=== PATIENT | female | born 1935 | race African-American/Black ===

== ENCOUNTER → 2017-03-18 | Outpatient (CLI) | payer OTHER ==
--- NOTE | 2017-03-18 16:40 | KCIC ---
PROCEDURE MRI of the cervical spine without contrast 03/18/2017 HISTORY Neck pain which radiates down the right arm. TECHNIQUE Unenhanced T1 weighted, T2 weighted and inversion recovery sagittal and gradient echo and T2 weighted axial images of the cervical spine were obtained. FINDINGS Comparison is made to radiographs of the cervical spine dated 06/28/2005. There is slight reversal of normal cervical lordosis. Very mild anterolisthesis C4 in relation to C5 is noted. Degenerative signal changes are seen involving all of the discs of the cervical spine. The marrow signal of the visualized bony structures is within normal limits. At the C2-3 disc space there is minimal generalized disc bulge. Degenerative changes are seen involving the uncovertebral and facet joints bilaterally. These findings do not result in significant central spinal canal or neural foraminal stenosis. At the C3-4 disc space there is mild generalized disc bulge. Degenerative changes are seen involving the uncovertebral and facet joints, left greater than right. These findings do not result in significant central spinal canal or neural foraminal stenosis. At the C4-5 disc space there is mild generalized disc bulge. Degenerative changes are seen involving the facet joints and uncovertebral joints, left greater than right. Superimposed on the disc bulge is a focal central disc protrusion. This measures 3 millimeters in AP diameter. These findings efface the anterior CSF without resulting in significant central spinal canal or neural foraminal stenosis. At the C5-6 disc space there is mild to moderate generalized disc bulge. This is eccentric to the left. Degenerative changes are seen involving the uncovertebral and facet joints, right greater than left. These findings do not result in significant central spinal canal stenosis. Mild right neural foraminal stenosis is seen. The left neural foramina is patent. At the C6-7 disc space there is mild to moderate generalized disc bulge. This is eccentric to the left. Degenerative changes are seen involving the uncovertebral and facet joints, left greater than right. Superimposed on the disc bulge is a left paracentral disc osteophyte complex. This measures 3 millimeters in AP diameter. These findings when combined efface the anterior CSF resulting in mild left-sided central spinal canal stenosis without evidence of cord impingement. Mild left neural foraminal stenosis is seen. The right neural foramina is patent. At the C7-T1 disc space there is minimal generalized disc bulge. Degenerative changes are seen involving the facet joints, left greater than right. These findings do not result in significant central spinal canal or neural foraminal stenosis. IMPRESSION Degenerative changes are seen throughout the cervical spine. These findings result in mild left-sided central spinal canal stenosis at C6-7 without evidence of cord impingement. Mild right neural foraminal stenosis is seen at C5-6. Mild left neural foraminal stenosis is seen at C6-7. Electronically signed by: Nate Ulloa MD (March 18, 2017 16:38:42)
== END | disposition home or self-care (01) ==
LOC: KCIC MRI 12:26
PROVIDERS: ATTEND Orthopaedic Surgery
DX: M47.892 Other spondylosis, cervical region (principal); M48.06 Spinal stenosis, lumbar region
CPT/HCPCS: 72141

== ENCOUNTER → 2017-07-18 | Outpatient (CLI) | payer OTHER ==
--- NOTE | 2017-07-25 12:33 | EEG ---
DATE OF SERVICE: 07/18/2017 EEG NUMBER: [id number] and OBJECTIVE: This is an 82-year-old -[place] female patient with history of memory loss and confusional episodes. EEG was requested to evaluate her cerebral activity. METHODS: Twenty electrodes were applied according to the international 10-20 electrode placement system. EKG monitoring, hyperventilation, intermittent photic stimulation and monopolar and bipolar montages are routinely utilized. The record is obtained on a digital system with video monitoring. FINDINGS: 1. Background: The patient was recorded in the awake, drowsy and sleep states. The overall background amplitude is 5-10 microvolts. A posterior dominant rhythm of 8-9 Hz is observed. The faster activity in beta frequency also noted. 2. Abnormalities: No specific epileptiform discharge or electrographic seizure is seen. No focal or diffuse slowing. 3. Activation: Hyperventilation was performed with good efforts and normal response. Intermittent photic stimulation was performed with photic driving. IMPRESSION: This EEG is a borderline study for the awake, drowsy and sleep states. There is a fast activity in beta frequency sometimes. No focal, lateralizing, specific epileptiform discharge or electrographic seizure is seen. NANCY CHANCE MD DR: SCOTT/kendall JOB#: [id number] / [id number] ELENA
== END | disposition home or self-care (01) ==
LOC: RT 10:05
PROVIDERS: ATTEND Psychiatry & Neurology Neurology
DX: F03.90 Unspecified dementia, unspecified severity, without behavioral disturbance, psychotic disturbance, mood disturbance, and anxiety (principal)
CPT/HCPCS: 95816

== ENCOUNTER → 2018-05-22 | Outpatient (CLI) | payer OTHER | END | disposition home or self-care (01) | LOC: MRI 09:47 | DX: M25.78 Osteophyte, vertebrae (principal); M48.02 Spinal stenosis, cervical region; M12.88 Other specific arthropathies, not elsewhere classified, other specified site; M50.223 Other cervical disc displacement at C6-C7 level | CPT/HCPCS: 72141 ==

== ENCOUNTER → 2019-10-02 | Outpatient (CLI) | payer OTHER ==
[~2019-10-02] MED LIST: AMLO5TAB10 PO; DONE10TA61 PO; DULO30CA2 PO; DULO60CA6 PO; GABA600T7 PO; PANT20TA2 PO; SIMV40TA18 PO; TRAM50TA PO
--- NOTE | 2019-10-03 00:05 | PAIN ---
DATE OF SERVICE: 10/02/2019 INITIAL CONSULTATION FOR PAIN CLINIC CHIEF COMPLAINT: Neck and bilateral upper extremity pain, left greater than right. HISTORY OF PRESENT ILLNESS: This is an 84-year-old female who presents with history of pain in the neck and also in the low back, has been through multiple modalities with her low back at an outside pain center including epidural steroid injections, radiofrequency ablation, medial branch blocks as well as multiple physical therapies. Her main complaint today is her neck and shoulders, more on the left than the right, the left upper extremity with radiating pain into the left posterior deltoid, lateral anterior bicep, into the triceps, also into the anterior forearm bilaterally, but worse on the left side. The patient reports it awakens her from sleep at least 2-3 times at night, affects her ability to walk. She is using a walker and a cane. She has a walker with her today. The patient has had physical therapy, has had counseling, chiropractic treatment which is going on currently, physical therapy going on currently as well, doing exercises as well at least twice a week. She does belong to the local [employer] and uses the pool there as well. The patient has been taking pxog-oip-stmsxvj Advil as well as Tylenol, which does help, but only about 20%. The patient reports her back is still painful as well, but her chief complaint is the neck and left upper extremity pain. No specific injury or action that she is aware of. She has got worse over time. It has been like this for several years now. The patient has some difficulty reporting her history. The patient does have a history of dementia and her son is with her today who helps fill in the historical history as well. The patient describes the pain as constant, sharp, shooting with numbness and tingling, radiating and cramping occasionally. The patient rates her disability rating from 0-10, 10 being the worst and an 8 with family home responsibilities and social activity, 7 with recreation, 6 with self-care and 9 with life support activities. The patient did have MRI scan of cervical spine showing C4-C5 with mild left neural foraminal stenosis due to uncovertebral and facet arthrosis, C5-C6 shows small broad-based posterior disk osteophyte complex with moderate right and [id number]-kv-[id number] left neural foraminal stenosis. C6-C7 shows srua-ew-[id number] bilateral neural foraminal stenosis, left greater than right due to uncovertebral facet arthrosis as well. The patient reports no loss of motor function, but significant fatigability with the left upper extremity, especially with reaching over her head with her left hand, with any repetitive motions or lifting items with the left arm. PAST MEDICAL HISTORY: Significant for hypertension, diabetes, dementia. PREVIOUS SURGERY: Include right shoulder surgery in 2006 and right carpal tunnel release. CURRENT MEDICATIONS: Include gabapentin, simvastatin, tramadol, amlodipine, sucralfate, pantoprazole, duloxetine and Aricept. ALLERGIES: THE PATIENT IS ALLERGIC TO SHELLFISH. NO MEDICAL ALLERGIES THAT SHE IS AWARE OF. FAMILY HISTORY: Significant for cancers, hypertension. SOCIAL HISTORY: The patient does not drink alcohol, does not smoke. Denies any illegal, illicit or recreational drugs. She is , lives locally by herself in [place], [place]. REVIEW OF SYSTEMS: The patient's review of systems is positive for those items mentioned in history of present illness. All systems reviewed and otherwise negative. It is complete, full and well documented on the patient's chart. PHYSICAL EXAMINATION: VITAL SIGNS: The patient's blood pressure is 134/80, pulse 75, respirations 18, temperature is 98.3 degrees Fahrenheit, height is 4 feet 10 inches, weight is 140 pounds. GENERAL: The patient is awake, alert, oriented, appropriate, very pleasant demeanor. Again, the patient's son present helps with history. HEENT: Shows normocephalic, atraumatic. Extraocular movements are intact and symmetrical. Oral cavity: Mucous membranes moist and pink. NECK: Shows anterior throat supple without palpable lymphadenopathy noted. Swallow reflex symmetrical. CHEST: Shows normal on inspection. Breath sounds are clear bilaterally. HEART: Shows S1, S2 clear. No murmurs auscultated. ABDOMEN: Obese, soft, nontender, nondistended. No palpable organomegaly is noted. BACK: Shows spine grossly in the midline. Cervical lordotic curvature shows normal appearance as is thoracic kyphotic curvature and slight flattening of lumbar lordotic curvature. Cervical paraspinous muscle shows symmetrical on inspection, on palpation shows no asymmetry, but shows some moderate tenderness with palpation bilaterally, more on the left and the superior medial trapezius as well as inferior cervical paraspinous musculature. The patient has good rotational motion, however, both laterally with some moderate tenderness with rotation past 45 degrees on the left, but not on the right. Full extension, full forward flexion performed with some minor pain with extension, but not with forward flexion. EXTREMITIES: The patient's upper extremities show deep tendon reflexes at 1+ in the biceps and triceps tendons. Motor exam is strong with continuous improvement coordinator strength rated at approximately 5/5 on the right and 4/5 on the left. Peripheral pulses are 2+ radial distribution. Bicep and tricep flexion is likewise 4/5 on the left, 5/5 on the right as well. Shoulder shrug is strong and intact without loss of strength on resistance with some moderate tenderness in the base of the neck on the left side with resistance. This is true with abduction of the shoulder at 90 degrees with pain, but without loss of strength bilaterally. SKIN: Shows warm and dry, good turgor. No edema. No sores, rashes or bruising throughout. IMPRESSION: 1. This is an 84-year-old female with clinical radiculopathy at C6-C7 dermatomal distribution on the left with radiating pain into the left shoulder and left arm, status post physical therapy, chiropractic treatment, which is ongoing as well and pool therapy, which she has been performing on her own at [facility]. 2. MRI scan of cervical spine as noted. 3. Diabetes. 4. Hypertension. 5. Arthritis. 6. Dementia. PLAN: Options were discussed with she and her son including conservative medical managements, physical therapies and interventional techniques. They would like to pursue interventional techniques. We discussed cervical epidural steroid injection using description as well as anatomical models to describe the procedure. They should wait for preauthorization with her insurance provider, [employer] and once this is obtained, we will have her return for cervical epidural steroid injection at that time for clinical left-sided C6-C7 dermatomal radiculopathy for a translaminar approach C6-C7 level with a cervical epidural steroid injection. The patient will continue with stretching and strengthening exercises as well as physical therapy as outlined and chiropractic treatment as outlined and return as scheduled. ADEEL MARES MD DR: MAYE/kendall JOB#: [id number] / [id number]
== END ==
LOC: PNCL 10:31
PROVIDERS: ATTEND Anesthesiology
DX: M54.12 Radiculopathy, cervical region (principal); E11.9 Type 2 diabetes mellitus without complications; I10 Essential (primary) hypertension; M19.90 Unspecified osteoarthritis, unspecified site; F03.90 Unspecified dementia, unspecified severity, without behavioral disturbance, psychotic disturbance, mood disturbance, and anxiety; Z79.899 Other long term (current) drug therapy; Z79.891 Long term (current) use of opiate analgesic; Z79.02 Long term (current) use of antithrombotics/antiplatelets; Z91.013 Allergy to seafood
CPT/HCPCS: G0463

== ENCOUNTER → 2019-10-16 | Outpatient (CLI) | payer OTHER ==
[~2019-10-16] MED LIST changes: +IOHEXOL 180 MG/ML 10 ML VIAL. ONE; +methylPREDNISolone ACETATE 40 MG/ML VIAL. ONE; +methylPREDNISolone ACETATE 80 MG/ML VIAL. ONE
--- NOTE | 2019-10-16 11:40 | PAIN ---
DATE OF SERVICE: 10/16/2019 PROGRESS NOTE FOR PAIN CLINIC DIAGNOSES: Cervical radiculopathy with cervical degenerative disk disease and cervical spinal stenosis. HISTORY OF PRESENT ILLNESS: The patient is an 84-year-old female, who returns for followup status post initial evaluation for a cervical epidural steroid injection and preauthorization. The patient has obtained that now and would like to proceed. The patient reports no new motor or sensory deficits, still significant pain in the base of the neck and shoulders, slightly more on the right than the left at this time, but present bilaterally into the upper extremities. The patient reports it is tingling, sharp, tight, shooting as well as becoming more constant, worse with activity, raising her hands over her head and using her walker to ambulate. The patient reports that 10 on a scale of 10 at all times, average, worst and least and is a 10 today. The patient reports no new motor or sensory deficits. Reports it awakens her from sleep occasionally, but only once or twice a night on most nights. PHYSICAL EXAMINATION: VITAL SIGNS: The patient's blood pressure is 134/75, pulse 72, respirations 18, temperature 98.2 degrees Fahrenheit, and height is 4 feet 10 inches. GENERAL: The patient is awake, alert, oriented, appropriate, is very pleasant demeanor. HEENT: Shows normocephalic, atraumatic. Extraocular movements are intact and symmetrical. Oral cavity: Mucous membranes are moist and pink. Dentition is intact. NECK: Shows anterior throat supple without palpable lymphadenopathy noted. Swallow reflex symmetrical. CHEST: Shows normal on inspection. Breath sounds are clear bilaterally. HEART: Shows S1, S2 clear. No murmurs auscultated. ABDOMEN: Soft, nontender, nondistended. BACK: Shows spine grossly in the midline. Normal appearing thoracic kyphosis and lumbar lordotic curvature. Lumbar paraspinous muscle shows symmetrical on inspection. Cervical paraspinous muscles are tender with palpation; however, mostly in the inferior aspect of the cervical paraspinous muscles and into the superior medial trapezius bilaterally, slightly worse on the right than the left. EXTREMITIES: Upper extremities show deep tendon reflexes at 1+ in the biceps, triceps tendons. Motor exam is approximately 4 on a scale of 5 on the left and 5/5 on the right. Peripheral pulses are 2+ radial distribution. No peripheral edema is noted bilaterally. Options were discussed with the patient. The patient's old chart was reviewed as her current medication regimen updated. Current review of systems updated today as well. We will proceed with a cervical epidural steroid injection today with fluoroscopic guidance. The risks were again discussed including but not limited to bleeding, infection, possibility of epidural hematoma, subsequent neurological compromise, dural puncture, headaches, spinal cord and/or nerve damage, side effects of steroid medication and poor results regarding pain control. The patient understands and wished to proceed. The patient will return to clinic in approximately 2 weeks for followup. She was counseled on return appointment, activity level and side effects to be aware of. DIAGNOSES: Cervical radiculopathy with cervical degenerative disk disease and cervical spinal stenosis. PROCEDURE: Cervical epidural steroid injection, translaminar approach at C6-C7 level using C-arm fluoroscopic guidance under sterile prep and drape using local anesthetic. MEDICATION INJECTED: A total of 120 mg of Depo-Medrol plus 5 mL of preservative-free normal saline and 2 mL of contrast. CONDITION AT DISCHARGE: Stable. The patient tolerated procedure well, had no complications. ADEEL MARES MD DR: MAYE/kendall JOB#: [id number] / [id number]
== END ==
LOC: PNCL 10:03
PROVIDERS: ATTEND Anesthesiology
DX: M50.123 Cervical disc disorder at C6-C7 level with radiculopathy (principal); M48.02 Spinal stenosis, cervical region
CPT/HCPCS: 62321; J1030; J1040; Q9965

== ENCOUNTER → 2019-11-13 | Outpatient (CLI) | payer OTHER ==
[~2019-11-13] MED LIST changes: -IOHEXOL 180 MG/ML 10 ML VIAL. ONE; -methylPREDNISolone ACETATE 40 MG/ML VIAL. ONE; -methylPREDNISolone ACETATE 80 MG/ML VIAL. ONE
--- NOTE | 2019-11-13 17:51 | PAIN ---
DATE OF SERVICE: 11/13/2019 PROGRESS NOTE FOR PAIN CLINIC DIAGNOSES: 1. Cervical radiculopathy. 2. Cervical degenerative disk disease. 3. Cervical spinal stenosis. HISTORY OF PRESENT ILLNESS: The patient is an 84-year-old female who returns for followup status post cervical epidural steroid injection x 1. The patient reports about 50% improvement for the first 2 weeks after the injection. The patient reports the pain has returned now over the past few days, but is in the base of the neck and shoulders, more on the left upper extremity than the right, but present bilaterally, more radiating to the base of the neck and into the left shoulder, left arm, left forearm with some numbness and tingling in both hands, but no noticeable tingling on the right hand. The patient reports her pain is a 9-10 on a scale of 10 at its worst, 9-10 on average, 5 at its least and is a 5 today. The patient reports it is aching, sharp, tight, tingling, becoming more constant and severe, unbearable at times. The patient reports it does not awaken her from sleep; however, she sleeps well about 8 hours without disturbance. The patient reports no new motor or sensory deficits, no new bowel or bladder incontinence or other complaints. PHYSICAL EXAMINATION: VITAL SIGNS: The patient's blood pressure 115/71, pulse 88, respirations 18, temperature 97.9 degrees Fahrenheit, height is 4 feet 9 inches, weight is 130 pounds. GENERAL: The patient is awake, alert, oriented, appropriate, very pleasant demeanor. The patient is accompanied by her son. HEENT: Shows normocephalic, atraumatic. Extraocular movements are intact and symmetrical. Oral cavity: Mucous membranes moist and pink. Dentition is intact. NECK: Shows anterior throat supple without palpable lymphadenopathy noted. Swallow reflex symmetrical. CHEST: Shows normal on inspection. Breath sounds are clear bilaterally. HEART: Shows S1, S2 clear. No murmurs auscultated. ABDOMEN: Soft, nontender, and nondistended. BACK: Shows spine grossly in the midline, slight flattening of cervical lordotic curvature, some minor increase in thoracic kyphotic curvature. Cervical paraspinous muscle shows symmetrical on inspection, with palpation shows some moderate tenderness diffusely, but only diffusely bilaterally without significant radiation. The patient has good rotational motion of cervical spine, both laterally greater than 45 degrees right and left as well as full extension, full forward flexion with slight guarding, but without significant pain reported. EXTREMITIES: The patient's upper extremities show deep tendon reflexes at 1+ in the biceps and triceps tendons. Motor exam is approximately 4 on a scale of 5 on the left with lathe scalper operator strength and 5/5 on the right. Peripheral pulses are 2+ radial without edema bilaterally. Options were discussed with the patient. The patient's old chart was reviewed as her current medication regimen updated. Current review of systems updated today as well. We will proceed with preapproval for a second cervical epidural steroid injection as the patient still has clinical radiculopathy at C6-C7 dermatomal distribution on the left with some quality in the right as well. We will plan on translaminar approach C6-C7 level after approval. The patient will continue with some stretching and strengthening exercises, which she is doing at home, heat pad application and massage techniques to the neck as well. We will wait for preauthorization and plan on second cervical epidural steroid injection on return. ADEEL MARES MD DR: MAYE/kendall JOB#: [id number] / [id number]
== END | disposition home or self-care (01) ==
LOC: PNCL 11:12
PROVIDERS: ATTEND Anesthesiology
DX: M50.10 Cervical disc disorder with radiculopathy, unspecified cervical region (principal); M48.02 Spinal stenosis, cervical region
CPT/HCPCS: G0463

== ENCOUNTER → 2019-11-27 | Outpatient (CLI) | payer OTHER ==
--- NOTE | 2019-11-27 12:17 | PAIN ---
DATE OF SERVICE: 11/27/2019 PROGRESS NOTE FOR PAIN CLINIC DIAGNOSES: Cervical radiculopathy with cervical degenerative disk disease and cervical spinal stenosis. HISTORY OF PRESENT ILLNESS: The patient is an 84-year-old female who returns for followup status post cervical epidural steroid injection x 1. The patient returns with her son today and she reports that it was improved by about 50% via patient's son. The patient is unable to communicate coherently, is vomiting and dry heaving throughout the interview. The patient's son reports that she has been this way for several weeks and has not been able to keep any food or liquids down and appears to be dehydrated. The patient also somewhat disoriented. The patient still with pain in the base of the neck by her son's report, it is sharp and tight, stabbing and severe at 10 on a scale of 10 at its worst over the past week, 8 on average and a 6 at its least again is from the patient's sons assessment who has been taking care of her at home. The patient is significantly incoherent for heaving and vomiting x 2 on her brief visit here today. PHYSICAL EXAMINATION: VITAL SIGNS: On physical exam, the patient's blood pressure is 135/60, pulse 78, respirations are 18, temperature 98.3 degrees Fahrenheit, height is 4 feet 9 inches and weighs 137 pounds. GENERAL: The patient is awake, but disoriented. HEENT: Shows decreased moisture and dry appearing mucous membranes and tongue. Throat shows anterior throat supple without palpable lymphadenopathy noted. Again, the patient has dry heaving and having some emesis during the exam as well. CHEST: Shows normal on inspection. Breath sounds are clear bilaterally. HEART: Shows S1, S2 clear. ABDOMEN: Soft, nontender. NECK: Shows grossly in the midline. Again, limited exam ability secondary to the patient's dry heaving and emesis. PLAN: Options were discussed with the patient's son and we will have her transported to the Emergency Department for IV hydration and assessment of somewhat intractable by report nausea and vomiting. The patient will follow up once stabilized, discussed the details with the patient's son. He understands and we will have to follow up after stabilized and we will call once she is improved. ADEEL MARES MD DR: MAYE/kendall JOB#: [id number] / [id number]
== END | disposition home or self-care (01) ==
LOC: PNCL 10:06
PROVIDERS: ATTEND Anesthesiology
DX: M50.10 Cervical disc disorder with radiculopathy, unspecified cervical region (principal); M48.02 Spinal stenosis, cervical region
CPT/HCPCS: G0463

== ENCOUNTER → 2019-12-03 | Outpatient (CLI) | payer OTHER ==
[2019-11-27 13:40] VITALS: BP 148/67
[~2019-12-03] MED LIST changes: +IOHEXOL 180 MG/ML 10 ML VIAL. ONE; +methylPREDNISolone ACETATE 40 MG/ML VIAL. ONE; +methylPREDNISolone ACETATE 80 MG/ML VIAL. ONE
--- NOTE | 2019-12-03 11:19 | PAIN ---
DATE OF SERVICE: 12/03/2019 PROGRESS NOTE FOR PAIN CLINIC DIAGNOSES: Cervical radiculopathy with cervical degenerative disk disease and cervical spinal stenosis. HISTORY OF PRESENT ILLNESS: The patient is an 84-year-old female who returns for followup and for a second cervical epidural steroid injection today. The patient had been diagnosed with at last visit. We sent her to the Emergency Department for dehydration. She was diagnosed with a rectal prolapse and is doing much better now. She has surgery scheduled for that coming up next month. The patient reports she is doing much better. She still has pain in the base of the neck and right upper extremity; however, rated an 8 on a scale of 10 at its worst, 7 on average, 7 at its least, and is a 7 today. The patient reports it is sharp and tight, tingling, and becoming more constant and more severe. She is increasing the range of motion with her neck, some days better than others, but most days doing fairly well. The patient reports that it awakens him from sleep about every 5-6 hours. Initially after the first injection, she was doing quite a bit better about 50%. Now, the pain is returning again in the neck and right upper extremity as it was. The patient reports no new motor or sensory deficits and no new changes. PHYSICAL EXAMINATION: VITAL SIGNS: The patient's blood pressure is 123/65, pulse 72, respirations are 18, temperature 97.7 degrees Fahrenheit, height is 4 feet 10 inches, and weight is 136 pounds. GENERAL: The patient is awake, alert, oriented, and appropriate. Very pleasant demeanor. HEENT: Head shows normocephalic and atraumatic. Extraocular movements are intact and symmetrical. Oral cavity: Mucous membranes are moist and pink. Dentition is intact. NECK: Shows anterior throat supple without palpable lymphadenopathy noted. Swallow reflex symmetrical. CHEST: Shows normal on inspection. Breath sounds are clear bilaterally. HEART: Shows S1, S2 clear. No murmurs auscultated. ABDOMEN: Soft, nontender, and nondistended. SPINE: Back shows spine grossly in the midline. Cervical paraspinous muscle shows symmetrical on inspection and palpation shows some mild tenderness diffusely in the inferior aspect of the cervical paraspinous musculature bilaterally but is symmetrical without evidence of atrophy or hypertrophy. The patient has good rotational motion of cervical spine with somewhat guarded and with right and left lateral rotation, but performed fully past 45 degrees with full extension and full forward flexion without significant pain reported. EXTREMITIES: Upper extremities show deep tendon reflexes 1+ in the biceps and triceps tendons. Motor exam is approximately 4 on a scale of 5 on the left and 5/5 on the right with creeler strength. Peripheral pulses are 2+ radial. No peripheral edema is noted. Options were discussed with the patient. The patient's old chart was reviewed as her current medication regimen updated. Current review of systems updated today as well. We will proceed with a second cervical epidural steroid injection today with fluoroscopic guidance. Risks were again discussed including but not limited to bleeding, infection, possibility of epidural hematoma, subsequent neurological compromise, dural puncture, headaches, spinal cord and/or nerve damage, side effects of steroid medication and poor results regarding pain control. The patient understands and wished to proceed. The patient will return to clinic in approximately 2 weeks for followup. She was counseled on return appointment, activity level, and side effects to be aware of. DIAGNOSES: Cervical radiculopathy with cervical degenerative disk disease and cervical spinal stenosis. PROCEDURE: Cervical epidural steroid injection, translaminar approach at C6-C7 level using C-arm fluoroscopic guidance under sterile prep and drape using local anesthetic. MEDICATION INJECTED: A total of 120 mg Depo-Medrol plus 5 mL of preservative-free normal saline and 2 mL of contrast. CONDITION AT DISCHARGE: Stable. The patient tolerated the procedure well and had no complications. ADEEL MARES MD DR: MAYE/kendall JOB#: [id number] / [id number]
== END | disposition home or self-care (01) ==
LOC: PNCL 10:12
PROVIDERS: ATTEND Anesthesiology
DX: M50.123 Cervical disc disorder at C6-C7 level with radiculopathy (principal); M48.02 Spinal stenosis, cervical region; Z98.890 Other specified postprocedural states; Z88.8 Allergy status to other drugs, medicaments and biological substances
CPT/HCPCS: 62321; J1030; J1040; Q9965

== ENCOUNTER → 2020-08-19 | Outpatient (CLI) | payer OTHER ==
[2019-11-27 13:40] VITALS: BP 148/67
[~2020-08-19] MED LIST changes: +AMLO-186 PO; -AMLO5TAB10 PO; -IOHEXOL 180 MG/ML 10 ML VIAL. ONE; -methylPREDNISolone ACETATE 40 MG/ML VIAL. ONE; -methylPREDNISolone ACETATE 80 MG/ML VIAL. ONE
--- NOTE | 2020-08-19 16:59 | CARD ---
MR#: [id number] Date of Study: 08/19/2020 Ordering Physician: DAVID ARMIJO, Referring Physician: DAVID RAMIJO Tech: Brittany Tam RDCS APPROVED REPORT EXAM: Two-dimensional and M-mode echocardiogram with Doppler and color Doppler. Other Information Quality : Good INDICATION Syncope 2D DIMENSIONS RVDd3.1 (2.9-3.5cm)Left Atrium(2D)2.8 (1.6-4.0cm) IVSd1.6 (0.7-1.1cm)Aortic Root(2D)2.8 (2.0-3.7cm) LVDd2.9 (3.9-5.9cm)LVOT Diameter2.2 (1.8-2.4cm) PWd1.5 (0.7-1.1cm)LVDs1.6 (2.5-4.0cm) FS (%) 30.0 %SV2.1 ml LVEF(%)60.0 (>50%) Aortic Valve AoV Peak Carlos.92.8cm/sAoV VTI10.7cm AO Peak GR.3.4mmHgLVOT Peak Carlos.75.9cm/s AO Mean GR.2mmHgAVA (VMAX)3.20cm2 CECILIA (VTI)3.80cm2 Mitral Valve MV E Jibafksv70.9cm/sMV DECEL [id number] MV A Ximhgiuh73.3cm/sE/A Ratio0.4 Tricuspid Valve TR P. Hnyshcfg928go/sRAP QQIIZWJF1fxNc TR Peak Gr.57qjArSQGE36plFv Pulmonary Vein S1 Cnozituv38.3cm/sD2 Xilwaebh62.5cm/s LEFT VENTRICLE The left ventricle is normal size. There is moderate concentric left ventricular hypertrophy. The lef t ventricular systolic function is normal and the ejection fraction is within normal range. The Eject ion Fraction is 60-65%. There is normal LV segmental wall motion. Transmitral Doppler flow pattern is Grade I-abnormal relaxation pattern. RIGHT VENTRICLE The right ventricle is normal size. The right ventricular systolic function is normal. ATRIA The left atrium size is normal. The right atrium size is normal. The interatrial septum is intact wit h no evidence for an atrial septal defect or patent foramen ovale as noted on 2-D or Doppler imaging. AORTIC VALVE The aortic valve is mildly thickened but opens well. Doppler and Color Flow revealed trace aortic reg urgitation. There is no significant aortic valvular stenosis. MITRAL VALVE The mitral valve is calcified but opens well. Mitral annular calcification is mild. There is no evide nce of mitral valve prolapse. There is no mitral valve stenosis. Doppler and Color Flow revealed no m itral valve regurgitation noted. TRICUSPID VALVE The tricuspid valve is normal in structure and function. Doppler and Color Flow revealed mild to mode rate tricuspid regurgitation. There is moderate pulmonary hypertension. The PA pressure was estimated at 43 mmHg. There is no tricuspid valve stenosis. PULMONIC VALVE The pulmonic valve is not well visualized. Doppler and Color Flow revealed no pulmonic valvular regur gitation. There is no pulmonic valvular stenosis. GREAT VESSELS The aortic root is normal in size. The ascending aorta is not well seen. The IVC was not visualized. PERICARDIAL EFFUSION There is no evidence of significant pericardial effusion. Critical Notification Critical Value: No <Conclusion> The left ventricular systolic function is normal and the ejection fraction is within normal range. Th e Ejection Fraction is 60-65%. There is normal LV segmental wall motion. Doppler and Color Flow revealed mild to moderate tricuspid regurgitation. There is moderate pulmonary hypertension. The PA pressure was estimated at 43 mmHg. Signed by : Fabrizio Thompson, Electronically Approved : 08/19/2020 16:58:37
== END ==
LOC: ECHO 11:16
PROVIDERS: ATTEND Internal Medicine Cardiovascular Disease
DX: I08.1 Rheumatic disorders of both mitral and tricuspid valves (principal)
CPT/HCPCS: 93306

== ENCOUNTER → 2020-08-21 | Outpatient (CLI) | payer OTHER ==
[2019-11-27 13:40] VITALS: BP 148/67
--- NOTE | 2020-08-21 12:16 | RAD ---
MR#: [id number] Date of Study: 08/21/2020 Ordering Physician: DAVID ARMIJO, Referring Physician: DAVID ARMIJO, Tech: Isa Ann, RAMIN, RVT, RTR APPROVED REPORT Patient Location: OUT-PATIENT Laterality:Bilateral Indications Syncope Doppler Spectral Velocity Analysis Right Left pCCA 46/9 cm/spCCA 62/8 cm/s mCCA 85/15 cm/smCCA 54/10 cm/s dCCA 50/12 cm/sdCCA 58/8 cm/s Bulb 32/7 cm/sBulb 49/10 cm/s ECA 60/9 cm/sECA 189/13 cm/s pICA 35/8 cm/spICA 51/9 cm/s Sandi 44/11 cm/smICA 59/13 cm/s dICA 37/11 cm/sdICA 106/20 cm/s Vert. 57/11 cm/sVert. 26/6 cm/s ICA/CCA 0.52ICA/CCA 1.71 Findings Grayscale images the bilateral carotid vessels demonstrates moderate diffuse atherosclerotic plaque. No focal high-grade obstruction is noted in the bilateral internal carotid arteries. The bilateral vertebral velocities are antegrade. Normal ICA to CCA ratios bilaterally. Overall 0 to less than 50% stenosis. Critical Notification Critical Value: No <Conclusion> 1. No significant carotid occlusive disease bilaterally. Signed by : Fabrizio Thompson, Electronically Approved : 08/21/2020 12:16:35
== END ==
LOC: US 09:53
PROVIDERS: ATTEND Internal Medicine Cardiovascular Disease
DX: I65.23 Occlusion and stenosis of bilateral carotid arteries (principal); R55 Syncope and collapse
CPT/HCPCS: 93880